=== PATIENT | female | born 1955 | race Caucasian/White ===

== ENCOUNTER → 2017-06-20 | Outpatient (CLI) | payer OTHER ==
[~2017-06-20] MED LIST: ACETAMINOPHEN-T1 TAB PO; ASPIRIN 81MG TA81 MG PO; CEFDINIR300 M1 PO; ESCITALOPRAM20 MG NG; HYDROCODONE1 TABLET PO; LEVAQUIN750 MG PO; PRAVASTATIN 20M20 MG PO; VOLTAREN75 MG PO
--- NOTE | 2017-06-24 13:52 | RADIOLOGY REPORT PS360 ---
DIG MAMM-SCREEN DEVON W/CAD CAD Screening ORDERING PHYSICIAN : Carlee Saravia APRN PATIENT AGE: 61 years GENDER: Female COMPARISON: Previous mammograms: December and 2015 HISTORY. 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 No hormones. No new complaints. Noncontributory family history. Routine screening TECHNIQUE: Standard CC and MLO images were obtained. R2 CAD reviewed. FINDINGS: RIGHT BREAST: Right breast is significant smaller than left due to the previous surgery/lumpectomy. .. Stable lumpectomy/radiation changes are again the lateral left breast. Architectural distortion in density pattern here is similar to multiple prior studies. There are slight additional benign calcifications are seen at the site. Reflecting fat necrosis at biopsy site. LEFT BREAST:. There is a small new 9 mm to 4 mm area of density at the far superior most left breast seen on the LEFT MLO view only. Clinical significance. It could be a intramammary lymph node but is more evident than on previous studies and margins are slightly irregular.- I would recommend spot MLO and 90 degree view of this area and if it persists on those views a cc spot and ultrasound would be warranted. Otherwise note slight progressive fatty changes throughout the left breast since older studies dating back to 2011 studies.. IMPRESSION: RIGHT BREAST:-. No significant new findings Stable lumpectomy post radiation changes, & architectural distortion lateral right breast Again noted.. A few clearly benign postsurgical dystrophic calcifications of slightly more evident in this region. LEFT BREAST.* New small focal density at superior left breast on MLO view-May be intramammary lymph node but warrants spot views in this higher risk patient. Changes BI-RADS CATEGORY: 0_Incomplete: Need additional imaging. Left breast RECOMMENDED FOLLOWUP: ADD ADDITIONAL IMAGING left breast Spot views of small focal density at superior left breast seen on left MLO view only. If persists ultrasound warranted (A letter has been sent to the patient regarding results of the study.)
== END ==
LOC: RAD 08:41
DX: Z12.31 Encounter for screening mammogram for malignant neoplasm of breast (principal)
CPT/HCPCS: G0202

== ENCOUNTER → 2017-07-08 | Outpatient (CLI) | payer OTHER ==
--- NOTE | 2017-07-17 07:26 | RADIOLOGY REPORT PS360 ---
DIG MAMM-DX UNI A/VWS-LT W/CAD Ordering Physician: Carlee Saravia APRN Patient Age: 61 years Female COMPARISON: June 2017, May 2016, 2014, February 2014 INDICATION: New density deep axillary tail left breast TECHNIQUE: MLO, ML, axillary cc and MLO spot views superior left breast FINDINGS: The small density noted on recent screening mammogram at superior left breast towards axillary tail is no longer evident on these views... It may possibly reflecting some area of skin edema or sebaceous cyst but has since resolved. The patient may resume annual follow-up. No new areas of concern IMPRESSION: Small focus of density noted on recent screening mammogram has resolved- with no residual or new areas of concern. Patient may resume annual follow-up BI-RADS CATEGORY: 2_Benign RECOMMENDED FOLLOWUP: 12M 12 MONTH FOLLOW-UP (A letter has been sent to the patient regarding results of the study.)
== END ==
LOC: RAD 13:13
DX: R92.8 Other abnormal and inconclusive findings on diagnostic imaging of breast (principal)
CPT/HCPCS: G0206-LT